=== PATIENT | male | born 1990 | race Caucasian/White ===

== ENCOUNTER 2019-12-25 22:56 | Emergency (ER) | payer OTHER ==
[~2019-12-25] VITALS: Ht 170.2 cm; Wt 77.7 kg
[2019-12-26] MEDS ORDERED: AMOXICILLIN 8751 TAB PO (02:01)
[2019-12-26] MEDS ORDERED: NORCO 325 MG-51 TAB PO (02:06)
[2019-12-26 02:41] VITALS: BP 138/70; PULSE 70; TEMP 98
== END 2019-12-26 02:41 | disposition home or self-care (01) ==
LOC: COL.ER 22:56
DX: S62.630B Displaced fracture of distal phalanx of right index finger, initial encounter for open fracture (principal); F17.220 Nicotine dependence, chewing tobacco, uncomplicated; W54.0XXA Bitten by dog, initial encounter; Y92.009 Unspecified place in unspecified non-institutional (private) residence as the place of occurrence of the external cause
CPT/HCPCS: J0295

== ENCOUNTER 2019-12-27 21:57 | Emergency (ER) | payer OTHER ==
[~2019-12-27] VITALS: Ht 170.2 cm; Wt 77.7 kg
[~2019-12-27 21:57] MED LIST: AMOXICILLIN 8751 TAB PO; NORCO 325 MG-51 TAB PO
[2019-12-27 23:02] VITALS: BP 139/92; PULSE 80; TEMP 98.6
== END 2019-12-27 23:03 | disposition home or self-care (01) ==
LOC: COL.ER 21:57
DX: S61.210D Laceration without foreign body of right index finger without damage to nail, subsequent encounter (principal); W54.0XXD Bitten by dog, subsequent encounter; F17.220 Nicotine dependence, chewing tobacco, uncomplicated

== ENCOUNTER 2020-02-17 12:25 | Emergency (ER) | payer OTHER ==
[~2020-02-17] VITALS: Ht 170.2 cm; Wt 77.3 kg
[2020-02-17 12:39] VITALS: TEMP 98.8
[2020-02-17 14:35] VITALS: BP 149/103; PULSE 96
== END 2020-02-17 14:35 | disposition home or self-care (01) ==
LOC: COL.ER 12:25
DX: J06.9 Acute upper respiratory infection, unspecified (principal); Z20.828 Contact with and (suspected) exposure to other viral communicable diseases

== ENCOUNTER 2020-09-01 08:48 | Emergency (ER) | payer OTHER ==
[2020-09-01 09:36] LABS: BASO # 0.1 (0.0-0.2); BASO % 1.2 % (0.0-2.0); EOS % 0.4 % (0-4.0); GRAN # 3.7 (1.4-6.5); GRAN % 71.1 % (42.2-75.2); HEMATOCRIT 45.9 % (42.0-52.0); HEMOGLOBIN 16.2 g/dl (13.5-18.0); LYMPH # 1.1 (1.2-3.4); LYMPH % 21.3 % (20.0-51.0); MEAN CELL VOLUME 87 fl (80.0-100.0); MEAN CORPUSCULAR HEMOGLOBIN 31 pg (27.0-31.0); MEAN CORPUSCULAR HGB CONC 35 g/dl (33.0-37.0); MEAN PLATELET VOLUME 10.5 fl (7.4-10.4); MONO # 0.3 (0.1-0.6); MONO % 5.2 % (1.7-9.3); PLATELET COUNT 181 K/mm3 (130-400); REDCELL DISTRIBUTION WIDTH-CV 11.8 % (11.5-14.5)
[2020-09-01 09:46] LABS: ALANINE AMINOTRANSFERASE 27 U/L (4-49); ALBUMIN 4.7 gm/dL (3.5-5.0); ALKALINE PHOSPHATASE 46 U/L (50-136); ANION GAP 10 mmol/L (7-16); AST,SGOT 45 U/L (15-37); BILIRUBIN,TOTAL 0.8 mg/dL (0.0-1.0); BLOOD UREA NITROGEN 12 mg/dL (9-20); CARBON DIOXIDE 27 mmol/L (22-30); CHLORIDE 106 mmol/L (98-107); GLUCOSE 108 mg/dL (74-106); LIPASE 196 U/L (23-300); POTASSIUM 4.5 mmol/L (3.4-5.0); SODIUM 142 mmol/L (137-145); TOTAL PROTEIN 7.7 gm/dL (6.4-8.2)
[2020-09-01 09:51] LABS: PROTHROMBIN TIME 11.3 SECONDS (9.7-12.8)
[2020-09-01 09:53] LABS: PARTIAL THROMBOPLASTIN TIME 28.4 SECONDS (26.0-37.0)
[2020-09-01 09:54] LABS: ALCOHOL(ethanol),MEDICAL 399 mg/dL
[2020-09-01 09:57] LABS: TROPONIN-I < 0.012 ng/mL (0.000-0.035)
[2020-09-01 10:46] VITALS: BP 144/106; PULSE 71
== END 2020-09-01 10:48 | disposition home or self-care (01) ==
LOC: COL.ER 08:48
PROVIDERS: Emergency Medicine
DX: S09.90XA Unspecified injury of head, initial encounter (principal); F10.129 Alcohol abuse with intoxication, unspecified; V49.9XXA Car occupant (driver) (passenger) injured in unspecified traffic accident, initial encounter

== ENCOUNTER 2021-01-08 14:36 | Emergency (ER) | payer OTHER ==
[~2021-01-08] VITALS: Ht 180.3 cm; Wt 77.3 kg
[2021-01-08 15:07] VITALS: TEMP 98.4
[2021-01-08 16:09] LABS: COLLECTION METHOD CLEAN CATCH
[2021-01-08 16:23] LABS: PH 7 (5-8); SQUAMOUS EPITHELIAL None Seen /hpf; URINE APPEARANCE Clear; URINE BACTERIA None Seen /hpf; URINE BILIRUBIN Negative (NEGATIVE); URINE BLOOD 1+ (NEGATIVE); URINE COLOR Straw; URINE GLUCOSE Negative (NEGATIVE); URINE KETONE Negative (NEGATIVE); URINE LEUKOCYTE ESTERASE Negative (NEGATIVE); URINE NITRATE Negative (NEGATIVE); URINE PROTEIN(semi-quant) Negative (NEGATIVE); URINE RBC 0-2 /hpf; URINE UROBILINOGEN Negative (NEGATIVE)
[2021-01-08 16:24] LABS: BASO # 0.1 (0.0-0.2); BASO % 2.6 % (0.0-2.0); GRAN # 1.6 (1.4-6.5); GRAN % 52.4 % (42.2-75.2); HEMATOCRIT 46.8 % (42.0-52.0); HEMOGLOBIN 16.3 g/dl (13.5-18.0); LYMPH % 31.8 % (20.0-51.0); MEAN CELL VOLUME 89 fl (80.0-100.0); MEAN CORPUSCULAR HEMOGLOBIN 31 pg (27.0-31.0); MEAN CORPUSCULAR HGB CONC 35 g/dl (33.0-37.0); MEAN PLATELET VOLUME 10.2 fl (7.4-10.4); MONO # 0.4 (0.1-0.6); MONO % 11.9 % (1.7-9.3); PLATELET COUNT 110 K/mm3 (130-400); RED BLOOD COUNT 5.26 M/mm3 (4.20-5.60); REDCELL DISTRIBUTION WIDTH-CV 13.3 % (11.5-14.5)
[2021-01-08 16:25] LABS: ACETAMINOPHEN < 10 ug/mL (10-30); ALANINE AMINOTRANSFERASE 463 U/L (4-49); ALBUMIN 4.9 gm/dL (3.5-5.0); ALKALINE PHOSPHATASE 123 U/L (50-136); ANION GAP 13 mmol/L (7-16); AST,SGOT > 750 U/L (15-37); BILIRUBIN,TOTAL 0.8 mg/dL (0.0-1.0); BLOOD UREA NITROGEN 7 mg/dL (9-20); CALCIUM 9.7 mg/dL (8.4-10.2); CARBON DIOXIDE 27 mmol/L (22-30); CHLORIDE 106 mmol/L (98-107); CREATININE, serum 0.85 (0.66-1.25); GLUCOSE 115 mg/dL (74-106); POTASSIUM 4.4 mmol/L (3.4-5.0); SALICYLATE < 1.0 mg/dL; SODIUM 146 mmol/L (137-145); TOTAL PROTEIN 8.4 gm/dL (6.4-8.2)
[2021-01-08 16:34] LABS: ALCOHOL(ethanol),MEDICAL 470 mg/dL
[2021-01-08 16:42] VITALS: BP 128/88; PULSE 92
[2021-01-08 16:48] LABS: TRICYCLIC ANTIDEPRESS URINE NEGATIVE
[2021-01-08 16:55] LABS: TSH w REFLEX 0.821 uIU/mL (0.465-4.680)
== END 2021-01-08 16:42 | disposition home or self-care (01) ==
LOC: COL.ER 14:36
PROVIDERS: Nurse Practitioner Primary Care
DX: F10.229 Alcohol dependence with intoxication, unspecified (principal); R44.2 Other hallucinations; S60.413A Abrasion of left middle finger, initial encounter; Z87.820 Personal history of traumatic brain injury; X78.9XXA Intentional self-harm by unspecified sharp object, initial encounter